=== PATIENT | male | born 1985 | race Caucasian/White ===

== ENCOUNTER 2017-12-31 14:51 | Emergency (ER) | payer OTHER ==
--- NOTE | 2017-12-31 15:23 | ED Physician Chart ---
ED Chief Complaint/HPI - Patient Information Date Seen:: 12/31/17 Time Seen:: 15:10 Chief Complaint:: right ankle injury History of Present Illness:: this 32 yo male who states that he twist his right foot and ankle while in the kitchen this am. he denies all other injuries. Allergies:: Allergies Allergy/AdvReac Type Severity Reaction Status Date / Time No Known Allergies Allergy Verified 12/31/17 15:01 Vitals:: Vital Signs - 8 hr 12/31/17 15:01 Temp 97.9 F HR 75 RR 16 BP 114/84 O2 Sat % 97 Historian:: Patient Review:: Nurse's Note Reviewed ED Review of Systems - Review of Systems General/Constitutional: No fever, No chills, No weight loss, No weakness, No diaphoresis, No edema, No loss of appetite Skin: No skin lesions, No rash, No bruising Head: No headache, No light-headedness Eyes: No loss of vision, No pain, No diplopia ENT: No earache, No nasal drainage, No sore throat, No tinnitus Neck: No neck pain, No swelling, No thyromegaly, No stiffness, No mass noted Cardio Vascular: No chest pain, No palpitations, No PND, No orthopnea, No edema Pulmonary: No SOB, No cough, No sputum, No wheezing GI: No nausea, No vomiting, No diarrhea, No pain, No melena, No hematochezia, No constipation, No hematemesis G/U: No dysuria, No frequency, No hematuria Musculoskeletal: Bone or joint pain (the right foot and ankle hurts.), No back pain, No muscle pain Endocrine: No polyuria, No polydipsia Psychiatric: No prior psych history, No depression, No anxiety, No suicidal ideation Hematopoietic: No bruising, No lymphadenopathy Allergic/Immuno: No urticaria, No angioedema Neurological: No syncope, No focal symptoms, No weakness, No paresthesia, No headache, No seizure, No dizziness, No confusion, No vertigo ED Past Medical History - Past Medical History Obtainable: Yes Past Medical History: No significant medical hx Family History: None Social History: Non Smoker, No Alcohol, No Drug Use Family Medical History - Family Member Mother History Unknown: Yes ED Physical Exam - Physical Examination General/Constitutional: Awake, Well-developed, well-nourished, Alert, No distress, GCS 15, Non-toxic appearing, Ambulatory Head: Atraumatic Eyes: Lids, conjuctiva normal, PERRL, EOMI Skin: Nl inspection, No rash, No skin lesions, No ecchymosis, Well hydrated, No lymphadenopathy ENMT: External ears, nose nl, Nasal exam nl, Lips, teeth, gums nl Neck: Nontender, Full ROM w/o pain, No JVD, No nuchal rigidity, No bruit, No mass, No stridor Respiratory: Nl effort/Exclusion, Clear to Auscultation, No Wheeze/Rhonchi/Rales Cardio Vascular: RRR, No murmur, gallop, rubs, NL S1 S2 GI: No tenderness/rebounding/guarding, No organomegaly, No hernia, Normal BS's, Nondistended, No mass/bruits, No McBurney tenderness : No CVA tenderness Extremities: No tenderness or effusion, Full ROM, normal strength in all extremities, No edema, Normal digits & nails Other Extremities comments:: the right foot and ankle are not tender and not swollen. the sensory and circulation are both normal. the rango of motion is also normal without pain. Neuro/Psych: Alert/oriented, DTR's symmetric, Normal sensory exam, Normal motor strength, Judgement/insight normal, Mood normal, Normal gait, No focal deficits Misc: Normal back, No paraspinal tenderness ED Labs/Radiology/EKG Results - Radiology Results Results: x-ray of the ankle = loose body of the right ankle ED Assessment - Assessment General Assessment: loose body of the right ankle. ED Septic Shock - . Is Septic Shock (SBP<90, OR Lactate>4 mmol\L) present?: No - <6hrs of presentation: Vital Signs: Vital Signs - 8 hr 12/31/17 15:01 Temp 97.9 F HR 75 RR 16 BP 114/84 O2 Sat % 97 ED Reassessment (Disposition) - Reassessment Reassessment Condition:: Unchanged - Diagnosis Diagnosis:: loose body of the right ankle - Aftercare/Follow up Instructions Aftercare/Follow-Up Instructions:: Counseled pt regarding lab results/diagnosis & need follow up, Refer to Discharge Instructions, Counseled pt & family regarding lab results/diagnosis & need follow up - Patient Disposition Discharge/Transfer:: Home Condition at Disposition:: Improved
--- NOTE | 2018-01-01 09:15 | Diagnostic Imaging Report ---
Right ankle 3 views Indication: Trauma Comparison: right foot ] X-ray the same day Findings: There is calcification of what is probably a large ossicle inferior to the lateral malleolus measuring 7 mm. An os trigonum is noted. Os peroneus is also noted. No evidence of an acute fracture or dislocation. No significant focal soft tissue swelling. Impression: Calcification of what may be a large ossicle along the inferior malleolus region. This is probably related to old trauma. Please correlate with clinical history and old exams. Otherwise no evidence of an acute fracture. In the setting of trauma, if clinical symptoms persist and there is continued concern for an occult fracture, follow up exams in 5-7 days is suggested.
--- NOTE | 2018-01-01 09:16 | Diagnostic Imaging Report ---
Right foot 3 views Indication: Trauma Comparison: Right ankle x-ray the same day Findings: An os trigonum is noted. 2 ossicles are seen laterally consistent with os peroneus. No evidence of an acute fracture or dislocation. No significant focal soft tissue swelling. Impression: No evidence of an acute fracture. In the setting of trauma, if clinical symptoms persist and there is continued concern for an occult fracture, follow up exams in 5-7 days is suggested.
== END 2017-12-31 15:53 | disposition home or self-care (01) ==
LOC: ER 14:51
DX: M24.071 Loose body in right ankle (principal); S99.911A Unspecified injury of right ankle, initial encounter; X50.1XXA Overexertion from prolonged static or awkward postures, initial encounter; Y93.89 Activity, other specified; Y92.89 Other specified places as the place of occurrence of the external cause; Y99.8 Other external cause status
CPT/HCPCS: 99284; 96372; 73610; 73630; J1885; Z7502

== ENCOUNTER 2018-01-02 10:11 | Emergency (ER) | payer OTHER ==
[2018-01-02 11:59] LABS: AMPHETAMINE URINE NEGATIVE (NEGATIVE); BARBITURATES URINE NEGATIVE (NEGATIVE); BENZODIAZEPINES QUAL URINE POSITIVE (NEGATIVE); CANNABINOID THC NEGATIVE (NEGATIVE); COCAINE METABOLITE QUAL URINE NEGATIVE (NEGATIVE); METHADONE URINE NEGATIVE (NEGATIVE); METHAMPHETAMINES QUAL URINE NEGATIVE (NEGATIVE); OPIATES (MORPHINE) QUAL. URINE NEGATIVE (NEGATIVE); PHENCYCLIDINE (PCP) URINE NEGATIVE (NEGATIVE); TRICYCLICS (TCA) QUAL. URINE NEGATIVE (NEGATIVE)
--- NOTE | 2018-01-02 12:00 | ED Physician Chart ---
ED Chief Complaint/HPI - Patient Information History of Present Illness:: A CURES report was run on this patient. He has primarily received benzos from a Dr. Elsa Joyce who I personally called and spoke with. She said that the patient comes to her all the time and complains of anxiety and insomnia. She is tired of seeing him. According to Dr. Joyce, he has told her that he was committed to [facility] in the past for anxiety and insomnia and saw psychiatrists there. His last Alprazolam was filled for 30 days on 12/16/2017. the dos3e was doubled from Alprazolam 0.5 mg to [address] Joyce. I informed Dr. Joyce that the CURES report indicated that he has also been getting benzos and narcotics from other doctors as well. Dr. Joyce said that she was going to fire the patient and send him a list of psychiatrists that he could see. while here in the ER, he wandered to our other room (after he had been placed on a monitor) to ask how long it would be before the doctor would see him. he also asked other nurses how long it would be before the doctor saw him on a number of occasions. A urine drug screen was sent. Pending at this time. 11:54 a.m. Allergies:: Allergies Allergy/AdvReac Type Severity Reaction Status Date / Time No Known Allergies Allergy Verified 12/31/17 15:01 Vitals:: Vital Signs - 8 hr 01/02/18 10:40 Temp 16 F HR 72 RR 16 BP 141/94 O2 Sat % 99 Family Medical History - Family Member Mother History Unknown: Yes ED Septic Shock - . Is Septic Shock (SBP<90, OR Lactate>4 mmol\L) present?: No - <6hrs of presentation: Vital Signs: Vital Signs - 8 hr 01/02/18 10:40 Temp 16 F HR 72 RR 16 BP 141/94 O2 Sat % 99 ED Reassessment (Disposition) - Reassessment Reassessment Condition:: Unchanged - Diagnosis Diagnosis:: Anxiety Benzodiazepine addiction Drug seeking behavior - Patient Disposition Discharge/Transfer:: Home Condition at Disposition:: Stable, Unchanged
== END 2018-01-02 12:18 | disposition home or self-care (01) ==
LOC: ER 10:11
DX: F41.9 Anxiety disorder, unspecified (principal); G47.00 Insomnia, unspecified; F13.20 Sedative, hypnotic or anxiolytic dependence, uncomplicated; Z76.5 Malingerer [conscious simulation]
CPT/HCPCS: 80307; Z7502

== ENCOUNTER 2018-04-02 13:04 | Emergency (ER) | payer OTHER ==
--- NOTE | 2018-04-02 18:16 | ED Physician Chart ---
ED Chief Complaint/HPI - Patient Information Date Seen:: 04/02/18 Time Seen:: 13:20 Chief Complaint:: Right Ankle Pain History of Present Illness:: onset x 6 weeks of intermittent, dull, MS type right ankle pain after an injury 6 weeks ago; X-Rays revealed + Distal Fibula Fracture of the right ankle; pt denies any further trauma and/or new injuries; pt denies LOC, ALOC, AMS, H/As, neck pain, C/P, SOB, Abd. Pain, A/N/V/D/C, fever, chills, or urinary s/s; pt's last tetanus shot: < 5 years; UTD Allergies:: Allergies Allergy/AdvReac Type Severity Reaction Status Date / Time No Known Allergies Allergy Verified 12/31/17 15:01 Vitals:: Vital Signs - 8 hr 04/02/18 04/02/18 13:20 13:33 Temp 98.1 F 98.1 F HR 89 89 RR 18 18 BP 143/68 143/68 O2 Sat % 97 97 Historian:: Patient Review:: Nurse's Note Reviewed, Old Chart Reviewed ED Review of Systems - Review of Systems General/Constitutional: No fever, No chills, No weight loss, No weakness, No diaphoresis, No edema, No loss of appetite Skin: No skin lesions, No rash, No bruising Head: No headache, No light-headedness Eyes: No loss of vision, No pain, No diplopia ENT: No earache, No nasal drainage, No sore throat, No tinnitus Neck: No neck pain, No swelling, No thyromegaly, No stiffness, No mass noted Cardio Vascular: No chest pain, No palpitations, No PND, No orthopnea, No edema Pulmonary: No SOB, No cough, No sputum, No wheezing GI: No nausea, No vomiting, No diarrhea, No pain, No melena, No hematochezia, No constipation, No hematemesis G/U: No dysuria, No frequency, No hematuria, No nacturia Musculoskeletal: Bone or joint pain, No back pain, No muscle pain Endocrine: No polyuria, No polydipsia Psychiatric: No prior psych history, No depression, No anxiety, No suicidal ideation, No homicidal ideation, No auditory hallucination, No visual hallucination Hematopoietic: No bruising, No lymphadenopathy Allergic/Immuno: No urticaria, No angioedema Neurological: No syncope, No focal symptoms, No weakness, No paresthesia, No headache, No seizure, No dizziness, No confusion, No vertigo ED Past Medical History - Past Medical History Obtainable: Yes Past Medical History: Other (Right Ankle Fracture) Family History: None Social History: Non Smoker, No Alcohol, No Drug Use, Single, Employed Surgical History: None Psychiatricy History: None Medication: Reviewed Family Medical History - Family Member Mother History Unknown: Yes ED Physical Exam - Physical Examination General/Constitutional: Awake, Well-developed, well-nourished, Alert, No distress, GCS 15, Non-toxic appearing, Ambulatory Head: Atraumatic Eyes: Lids, conjuctiva normal, PERRL, EOMI Skin: Nl inspection, No rash, No skin lesions, No ecchymosis, Well hydrated, No lymphadenopathy ENMT: External ears, nose nl, TM canals nl, Nasal exam nl, Lips, teeth, gums nl , Oropharynx nl, Tonsils nl Neck: Nontender, Full ROM w/o pain, No JVD, No nuchal rigidity, No bruit, No mass, No stridor Other Neck comments:: supple; no meningeal signs; no cervical tenderness Respiratory: Nl effort/Exclusion, Clear to Auscultation, No Wheeze/Rhonchi/Rales Cardio Vascular: RRR, No murmur, gallop, rubs, NL S1 S2, Carotid/Femoral/Distal pulses equal bilaterally GI: No tenderness/rebounding/guarding, No organomegaly, No hernia, Normal BS's, Nondistended, No mass/bruits, No McBurney tenderness, Rectum exam nl Other GI comments:: no pulsatile masses : No CVA tenderness Extremities: No tenderness or effusion, Full ROM, normal strength in all extremities, No edema, Normal digits & nails Other Extremities comments:: Right Ankle tenderness with no loss of ROMs; no FBs; no wounds; no septic joints ; no cellulitis; no ligament instability; good motor, tendon, and sensory functions; Gait: WNL; good NV functions Neuro/Psych: Alert/oriented, DTR's symmetric, Normal sensory exam, Normal motor strength, Judgement/insight normal, Mood normal, Normal gait, No focal deficits Other Neuro/Psych comments:: no focal signs Misc: Normal back, No paraspinal tenderness ED Labs/Radiology/EKG Results - Radiology Results Comments:: X-Rays: deferred by pt ED Assessment - Procedures Informed Consent: Procedure/risk/benefits explained by MD: Yes Splint Care: Splint applied Post Procedure/Splint Exam: No Active Bleeding, Full Range of Motion, Neuro/ Vascular Exam Comments:: pt has his own Crutches ED Septic Shock - . Is Septic Shock (SBP<90, OR Lactate>4 mmol\L) present?: No - <6hrs of presentation: Vital Signs: Vital Signs - 8 hr 04/02/18 04/02/18 13:20 13:33 Temp 98.1 F 98.1 F HR 89 89 RR 18 18 BP 143/68 143/68 O2 Sat % 97 97 ED Reassessment (Disposition) - Reassessment Reassessment:: pt is asymptomatic upon discharge Reassessment Condition:: Improved - Diagnosis Diagnosis:: Right Ankle Old Injury; Right Ankle Pain; Right Distal Fibula Bone Old Fracture ; Sprains and Strains; Old Right Ankle Fracture - Aftercare/Follow up Instructions Aftercare/Follow-Up Instructions:: Counseled pt regarding lab results/diagnosis & need follow up, Refer to Discharge Instructions, Counseled pt & family regarding lab results/diagnosis & need follow up - Patient Disposition Discharge/Transfer:: Home Condition at Disposition:: Stable, Improved (X-Rays Instructions; RTER prn if existing s/s reoccur and/or get worse and/or any other new s/s occur; ACIs given for all above Dx; Refer to Orthopedist/Cooling Machine Operator RACHEL; F/U with PMD in one day or prn; RTER prn if concerned)
== END 2018-04-02 13:45 | disposition home or self-care (01) ==
LOC: ER 13:04
DX: S93.401A Sprain of unspecified ligament of right ankle, initial encounter (principal); S96.911A Strain of unspecified muscle and tendon at ankle and foot level, right foot, initial encounter; X58.XXXA Exposure to other specified factors, initial encounter; Y93.89 Activity, other specified; Y92.89 Other specified places as the place of occurrence of the external cause; Y99.8 Other external cause status
CPT/HCPCS: Z7502

== ENCOUNTER 2018-05-02 19:49 | Emergency (ER) | payer OTHER ==
--- NOTE | 2018-05-02 20:17 | ED Physician Chart ---
ED Chief Complaint/HPI - Patient Information Date Seen:: 05/02/18 Time Seen:: 20:17 Chief Complaint:: Anxiety and insomnia History of Present Illness:: 32 yo male took a Lyft from his home to ER due to anxiety and insomnia for 2 nights. "I have a lot of stress." "I have no income." "I lived with my girlfriend for 6 years and we broke up." "I am renting a house with other people." Pt took seroquel and antivan prescribed by his PCP. Pt ran out of medication and stated that his PCP was not in office earlier today. Allergies:: Allergies Allergy/AdvReac Type Severity Reaction Status Date / Time No Known Allergies Allergy Verified 05/02/18 20:03 Vitals:: Vital Signs - 8 hr 05/02/18 20:00 Temp 98.7 F HR 97 RR 20 BP 137/84 O2 Sat % 97 ED Review of Systems - Review of Systems General/Constitutional: No fever Skin: No skin lesions Head: No headache Eyes: No pain ENT: No nasal drainage Neck: No neck pain Cardio Vascular: No chest pain Pulmonary: No SOB GI: No nausea, No vomiting Musculoskeletal: No bone or joint pain Psychiatric: Depression, Anxiety, No suicidal ideation, No homicidal ideation Neurological: No focal symptoms ED Past Medical History - Past Medical History Past Medical History: No significant medical hx Social History: Non Smoker, No Alcohol, No Drug Use Surgical History: other (surgical removal of gynecomastia ) Psychiatricy History: Depression, Bipolar Family Medical History - Family Member Mother History Unknown: Yes ED Physical Exam - Physical Examination General/Constitutional: Awake, Alert Head: Atraumatic Eyes: PERRL Skin: No skin lesions ENMT: Nasal exam nl Neck: No nuchal rigidity Respiratory: No Wheeze/Rhonchi/Rales Cardio Vascular: RRR, No murmur, gallop, rubs, NL S1 S2 GI: No tenderness/rebounding/guarding Extremities: normal strength in all extremities Neuro/Psych: Alert/oriented ED Assessment - Assessment General Assessment: Anxiety Depression Bipolar disorder Assessment/Comments:: Educated pt on anti-anxiety management and importance of waning off benzodiazepines. At ER, no psych medication adjustment or long line teamster management is available. Buspar 5mg PO x 1 was given, recommended pt to follow up PCP to continue non- benzodiazepines anti-anxiety treatment. ED Septic Shock - . Is Septic Shock (SBP<90, OR Lactate>4 mmol\\L) present?: No - <6hrs of presentation: Vital Signs: Vital Signs - 8 hr 05/02/18 20:00 Temp 98.7 F HR 97 RR 20 BP 137/84 O2 Sat % 97 ED Reassessment (Disposition) - Reassessment Reassessment Condition:: Improved - Patient Disposition Discharge/Transfer:: Home
== END 2018-05-02 21:00 | disposition home or self-care (01) ==
LOC: ER 19:49
DX: F41.9 Anxiety disorder, unspecified (principal); F32.9 Major depressive disorder, single episode, unspecified; G47.00 Insomnia, unspecified
CPT/HCPCS: Z7502; Z7610